=== PATIENT | female | born 1965 | race Caucasian/White ===

== ENCOUNTER 2017-11-07 07:25 | Day surgery (SDC) | payer OTHER ==
[~2017-11-07 07:25] MED LIST: Midazolam 1 MG/ML 2 ML SDV ONE; Propofol 200 MG/20 ML SDV ONE; fentaNYL 100 MCG/2 ML SDV ONE
[2017-11-07] MEDS ORDERED: Sodium Chloride 0.9% 1,000 ML IV SCH (08:00)
[2017-11-07] MEDS ORDERED: Propofol 200 MG/20 ML SDV ONE ×2 (08:26→08:37)
--- NOTE | 2017-11-07 10:09 | OR ---
DATE OF PROCEDURE: 11/07/2017 PROCEDURE: Colonoscopy. FINDINGS: 1. Transverse colon polyp, approximately 5 mm, completely removed using cold biopsy forceps. 2. Diverticulosis, mild, and small tics, concentrated at sigmoid colon. PREOPERATIVE DIAGNOSIS: Screening colonoscopy. POSTOPERATIVE DIAGNOSIS: Screening colonoscopy. RISKS: Risks, benefits, alternatives, and limitations including, but not limited to infection, bleeding, and perforation were explained to the patient, who wished to proceed. PROCEDURE IN DETAIL: The patient was placed in left lateral decubitus position. Digital rectal exam was performed without abnormality. The scope was introduced and advanced atraumatically to the ileocecal valve. The scope was brought back to the ascending, transverse, descending colon, and retroflexed. A small, approximately 5 mm, polyp was identified and completely removed. Diverticulosis was described as mild, limited to the sigmoid colon, and no evidence of active bleeding or infection. No abnormalities on retroflexion. The patient tolerated the procedure well. Joesph Reed MD /[id number]
== END 2017-11-07 09:55 | disposition home or self-care (01) ==
LOC: JP.SDS 07:25
PROVIDERS: ATTEND Surgery
DX: Z12.11 Encounter for screening for malignant neoplasm of colon (principal); D12.3 Benign neoplasm of transverse colon; K57.30 Diverticulosis of large intestine without perforation or abscess without bleeding; K21.9 Gastro-esophageal reflux disease without esophagitis; E66.01 Morbid (severe) obesity due to excess calories; Z68.41 Body mass index [BMI] 40.0-44.9, adult; Z88.0 Allergy status to penicillin; Z88.1 Allergy status to other antibiotic agents; Z79.899 Other long term (current) drug therapy
CPT/HCPCS: 45380; J2250; J2704; J3010; J7030; 88305

== ENCOUNTER 2018-06-19 05:31 | Day surgery (SDC) | payer OTHER ==
[2018-06-19] MEDS ORDERED: Acetaminophen 500 MG Tab PO ONE (05:38)
[2018-06-19] MEDS: Dextrose 5%-Lactated Ringers 1,000 ML IV SCH ×2 (06:26→18:13)
[2018-06-19] MEDS ORDERED: Bupivacaine 0.5%/EPINEPHrine 1:200,000 50 ML MDV ONE (06:56)
[2018-06-19] MEDS ORDERED: cefOXitin 2 GM in Sodium Chloride 0.9% 100 ML IV ONE (07:00)
[2018-06-19] MEDS ORDERED: Dexamethasone 4 MG/ML SDV ONE (07:15)
[2018-06-19] MEDS ORDERED: Succinylcholine 200 MG/10 ML MDV ONE (07:15)
[2018-06-19] MEDS ORDERED: Glycopyrrolate 0.2 MG/ML 5 ML MDV ONE (07:15)
[2018-06-19] MEDS ORDERED: Ondansetron 4 MG/2 ML SDV ONE (07:15)
[2018-06-19] MEDS ORDERED: Propofol 200 MG/20 ML SDV ONE (07:15)
[2018-06-19] MEDS ORDERED: Rocuronium 50 MG/5 ML Vial ONE (07:15)
[2018-06-19] MEDS ORDERED: Neostigmine Methylsulfate 1 MG/ML 5 ML Syringe ONE (07:15)
[2018-06-19] MEDS ORDERED: fentaNYL 250 MCG/5 ML SDV ONE ×2 (07:16→07:32)
[2018-06-19] MEDS ORDERED: Ropivacaine 60 ML, Dexamethasone 8 MG, EPINEPHrine 0.4 MG, Sodium Chloride 0.9% 17.6 ML NERVRT SCH ×4 (07:30)
[2018-06-19] MEDS ORDERED: cefOXitin 2 GM in Sodium Chloride 0.9% 50 ML IV ONE (07:30)
[2018-06-19] MEDS ORDERED: Ketamine 500 MG/5 ML MDV IV SCH (07:30)
[2018-06-19] MEDS ORDERED: fentaNYL 100 MCG/2 ML SDV IVPUSH ONE ×2 (08:55→09:11)
[2018-06-19] MEDS ORDERED: hydrOXYzine HCl 100 MG/2 ML SDV IM ONE (08:55)
[2018-06-19] MEDS ORDERED: HYDROmorphone/Normal Saline 15 MG/30 ML PCA IV PRN (09:04)
[2018-06-19] MEDS ORDERED: Naloxone 0.4 MG/ML SDV IV PRN (10:31)
[2018-06-19] MEDS ORDERED: Ondansetron 4 MG/2 ML SDV IVPUSH PRN (11:00)
[2018-06-19] MEDS ORDERED: Pantoprazole 40 MG Vial IVPUSH SCH (14:00)
[2018-06-19] MEDS: cefOXitin 2 GM in Sodium Chloride 0.9% 50 ML IV SCH ×2 (14:22→21:03)
[2018-06-19] MEDS: Acetaminophen/HYDROcodone 325-5 MG Tab PO PRN ×2 (18:10→21:10)
[2018-06-20] MEDS: cefOXitin 2 GM in Sodium Chloride 0.9% 50 ML IV SCH ×2 (01:15→08:05)
[2018-06-20] MEDS: Acetaminophen/HYDROcodone 325-5 MG Tab PO PRN ×2 (01:16→08:05)
--- NOTE | 2018-06-21 12:15 | DISCH ---
FINAL DIAGNOSES: 1. Biliary dyskinesia. 2. Hepatic steatosis. 3. Incarcerated umbilical hernia. 4. Obesity. OPERATIVE PROCEDURES: Done on 06/19, diagnostic laparoscopy with: 1. Cholecystectomy. 2. Needle liver biopsy. 3. Repair of incarcerated umbilical hernia. SUMMARY: This is a 53-year-old female, presenting with ongoing right-sided abdominal pain in an episodic manner. Workup included a HIDA scan, which showed a ejection fraction as well as the CCK injection causing reproduction of her symptoms. On previous ultrasound, she was also noted to have problems with hepatic steatosis and is undergoing liver biopsy along with cholecystectomy, and with expiration, she was also noted to have an incarcerated umbilical hernia, which was repaired concurrently. Postoperatively, no major problems were noted. Labs looked good this morning, and she will be discharged home on her usual medications plus [place] 5/325 one tablet q.3 hours p.r.n. pain. Follow up with Meg Alarcon at [facility] will be on Friday06/29/2018, at 9:30.
--- NOTE | 2018-06-25 09:16 | OR ---
DATE OF PROCEDURE: 06/19/2018 PREOPERATIVE DIAGNOSES: 1. Biliary dyskinesia. 2. Hepatic steatosis. POSTOPERATIVE DIAGNOSES: 1. Biliary dyskinesia. 2. Hepatic steatosis. 3. Incarcerated incisional hernia at previous umbilical trocar site. OPERATIVE PROCEDURE: Diagnostic laparoscopy with: 1. Laparoscopic cholecystectomy (38125). 2. Srinivas-Cut needle liver biopsy (70264). 3. Repair of incarcerated incisional hernia (67501). ANESTHESIA: General. PEST CONTROL APPLICATOR: Meg Alarcon PA-C., and Ladarius Ocampo MS1. INDICATIONS FOR PROCEDURE: This is a 53-year-old presenting with recurrent episodes of right upper abdominal pain. A CCK stimulated HIDA scan was obtained which showed a below normal ejection fraction along with CCK causing reproduction of her symptoms. On her recent ultrasound, she was also noted to have hepatic steatosis and plan is to proceed with a laparoscopic cholecystectomy along with liver biopsy to clarify the present histologic status. Potential risks of the procedure including bleeding, infection, injury to common bile duct, possible migration of stones to the common bile duct during the manipulation of the gallbladder requiring additional treatment were all gone over and the patient wishes to proceed. DETAILS OF PROCEDURE: The patient was taken to the operating room and placed in a supine position. General endotracheal anesthetic was then induced and the abdomen prepped and draped. In the epigastrium, a transverse incision was made and the peritoneal cavity entered under direct vision with an Optiview trocar, inflated to 15 mmHg pressure with CO2. Laparoscope was then reinserted and no underlying trocar insertion site injuries were seen. Following this, a transverse incision was made in the subumbilical region. The patient had a previous incision in that location and she did have a hernia located there with the incisional hernia being occupied by some preperitoneal fat. This was excised and the trocar was then passed into the umbilicus without difficulty. The fascial opening was roughly the size of the trocar. One additional trocar was placed in the right subcostal region. Bilateral transversus abdominis plane blocks were then placed. At this point, the liver was noted to be fairly fatty infiltrated in appearance. There was no evidence of cirrhosis or portal hypertension. A small stab wound in the right mid subcostal area was then made and the Srinivas-Cut needle biopsies were obtained from the right lobe of the liver. Minimal bleeding from the biopsy sites was controlled with electrocautery. At this point, the gallbladder was retracted anteriorly and laterally. The gallbladder was fairly distended and somewhat edematous in appearance. Dissection began with Harmonic Scalpel where some omental adhesions were attached to the gallbladder. This dissection was then continued down on the gallbladder neck and then into the gallbladder neck-cystic duct junction. Once that area was well delineated as was the adjacent cystic artery, both structures were clipped 3 times proximally and once distally and divided. Gallbladder was then dissected off the gallbladder bed using Harmonic scalpel and delivered through the epigastric trocar site. Upon evacuation of the gallbladder contents, starch like material was present along with some tiny stones. At this point, no further problems were noted. Drain was felt not to be necessary. The camera was brought back up to the epigastric site and then the incisional hernia was then closed with placement of a laparoscopic suture passer positioning 0 Vicryl stitches, total of four stitches were used in this elective closure of the incisional hernia with a transverse orientation. At that point, the remaining trocars were removed, peritoneal cavity deflated, and sutures were tied at the fascia level and the skin was closed with 4-0 Vicryl stitch. Dressing was applied. The patient was taken to the recovery room in satisfactory condition. There were no evident complications. Physician office support assistant, Meg Alarcon, played an essential role in assisting in this case, helping to position the patient, retract structures as needed, as well as suturing and cutting sutures as indicated. Her presence improved patient safety and decreased the operative time. Christopher Lr MD /[id number]
== END 2018-06-20 10:53 | disposition home or self-care (01) ==
LOC: JP.SDS 05:31 → JP.MS 09:05 → JP.SDS 06-20 10:53
PROVIDERS: ATTEND Surgery
DX: K81.1 Chronic cholecystitis (principal); K82.8 Other specified diseases of gallbladder; K76.0 Fatty (change of) liver, not elsewhere classified; E88.89 Other specified metabolic disorders; K42.0 Umbilical hernia with obstruction, without gangrene; E66.01 Morbid (severe) obesity due to excess calories; Z68.41 Body mass index [BMI] 40.0-44.9, adult; Z88.1 Allergy status to other antibiotic agents; Z88.0 Allergy status to penicillin
CPT/HCPCS: 36415; 47001; 47562; 82247; 84075; 85025; 88302; 88304; 88307; 88313; A9270; C9113; J0171; J0330; J0694; J1100; J1170; J2405; J2704; J2710; J2795; J3010; J3410; J3490; J7042; J7050

== ENCOUNTER 2020-09-26 07:17 | Day surgery (SDC) | payer OTHER ==
[2020-09-26] MEDS ORDERED: fentaNYL 100 MCG/2 ML SDV ONE (07:37)
[2020-09-26] MEDS ORDERED: Propofol 200 MG/20 ML SDV ONE ×2 (07:37→09:22)
[2020-09-26] MEDS ORDERED: Midazolam 1 MG/ML 2 ML SDV ONE (07:37)
[2020-09-26] MEDS ORDERED: Sodium Chloride 0.9% 1,000 ML IV SCH (08:00)
--- NOTE | 2020-09-26 13:59 | OR ---
DATE OF PROCEDURE: 09/26/2020 SURGEON: Joesph Reed MD PROCEDURE: Colonoscopy. FINDINGS: Descending colon polyp, approximately 5 mm, completely removed using hot snare wire device. COMPLICATIONS: None. BOILING HOUSE HAND: None. ANESTHESIA: MAC. RISKS: Risks, benefits, alternatives, and limitations including but not limited to infection, bleeding, perforation, and false positives and false negatives were explained to patient who wished to proceed. PROCEDURE IN DETAIL: The patient was placed in left lateral decubitus position. Digital rectal exam was performed without abnormality. Scope was introduced and advanced atraumatically to the ileocecal valve. A photo was taken. The scope was brought back to the ascending, transverse, and descending colon and retroflexed. The aforementioned polyp was identified and completely removed. No evidence of old or new blood. No masses. No other polyps, no abnormalities on retroflexion. Greater than 8 minutes was spent removing the scope. The prep was acceptable with approximately 90% of luminal surface could be seen. The patient tolerated the procedure well. Joesph Reed MD /[id number]
== END 2020-09-26 10:53 | disposition home or self-care (01) ==
LOC: JP.SDS 07:17
PROVIDERS: ATTEND Surgery
DX: Z12.11 Encounter for screening for malignant neoplasm of colon (principal); D12.4 Benign neoplasm of descending colon
CPT/HCPCS: 45385; J2250; J2704; J3010; J7030